=== PATIENT | male | born 1940 | race Caucasian/White ===

== ENCOUNTER 2016-06-12 16:03 | Inpatient (IN) | payer OTHER, BC ==
--- NOTE | 2016-06-12 17:06 | EDPHY ---
H & P Time Seen by Provider: 06/12/16 16:35 HPI/ROS: Chief complaint. Slurred speech HPI. Patient is a 76-year-old male with apparent severe lumbar stenosis was in the neurosurgical office today trying to schedule surgery and they found him to have slurred speech and a blood pressure in the 70s. 4 days ago he developed right leg weakness he was prescribed [place]. They called him and told him he needed more immediate surgery. Patient tells me said slurred speech for 2 days and some right arm weakness. He can' t lift a bottle of milk which he normally can. His leg is somewhat weak 2. He lives by himself in [place]. His daughter drove him. He has no chest discomfort or trouble breathing. ROS Constitutional. no fever/chills, no weakness Eyes. no problems with vision ENT. no sore throat, no nasal drainage Cardiovascular. no chest pain Respiratory. no shortness of breath, no cough Abdominal. no abdominal pain, no nausea/vomiting, no diarrhea . no problems urinating MS. no calf pain/swelling, no neck/back pain, no joint pain Skin. no rash Lymph. no swollen glands Neuro. Slurred speech and right-sided weakness causing difficulty walking and with speech Past Medical/Surgical History: Past medical history seen for Parkinson's disease, cervical fusion, lumbar fusion, lumbar stenosis Social History: , nonsmoker, no alcohol Smoking Status: Former smoker Physical Exam: General Appearance: Alert well-developed male mild distress vital signs show an initial blood pressure 109/58 with O2 saturation 91% on room air Eyes: Pupils equal and round no pallor or injection. ENT, Mouth: Mucous membranes are moist. Respiratory: There are no retractions, lungs are clear to auscultation. Cardiovascular: Regular rate and rhythm. Gastrointestinal: Abdomen is soft and nontender, no masses, bowel sounds normal. Neurological: Awake and alert, sensory and motor exams grossly normal. Speech is slurred. Cranial nerves otherwise intact. I cannot demonstrate of facial droop. Patient is ataxic with his right index finger. There is no pronator drift. He also appears to be ataxic with his right leg on [id number] testing Skin: Warm and dry, no rashes. Musculoskeletal: Neck is supple nontender. Extremities symmetrical, full range of motion. Psychiatric: Patient is oriented X 3, there is no agitation. Constitutional: Initial Vital Signs Temperature (C) 36.8 C 06/12/16 16:15 Heart Rate 71 06/12/16 16:15 Respiratory Rate 18 06/12/16 16:15 Blood Pressure 109/58 L 06/12/16 16:15 O2 Sat (%) 91 L 06/12/16 16:15 O2 Delivery Mode Room Air Allergies/Adverse Reactions: No Known Allergies Allergy (Verified 12/21/15 11:42) Home Medications: Medication Instructions Recorded Amiodarone HCl [Pacerone (*)] 200 mg PO DAILY 09/17/14 Cholecalciferol Vit D3 [Vitamin D3 1,000 units PO DAILY 09/17/14 (*)] Tamsulosin HCl [Flomax 0.4 MG (*)] 0.4 mg PO DAILY #30 cap 10/14/14 Aspirin [Aspirin 81mg (*)] 81 mg PO DAILY 12/20/15 Atorvastatin Calcium [Lipitor 40 80 mg PO DAILY 12/20/15 mg (*)] Carbidopa/Levodopa 25/100Mg 1 - 2 tab PO HS 12/20/15 [Sinemet 25/100 MG (*)] Carbidopa/Levodopa 25/100Mg 1 tab PO TIDMEAL 12/20/15 [Sinemet 25/100 MG (*)] traMADol [Ultram 50 mg (*)] 100 mg PO Q6 PRN 12/20/15 Colace 06/12/16 GABAPENTIN 06/12/16 HCTZ (*) 06/12/16 IBUPROFEN 06/12/16 Medical Decision Making - Diagnostics EKG Interpretation: EKG interpreted by me shows normal sinus rhythm with normal interval. Left axis deviation. QRS is otherwise normal no significant ST elevation or depression. No arrhythmia. The rate is 60 Imaging: Noncontrast head CT reviewed by me and discussed with Dr. Dubois appears nonacute. No evidence of CVA or hemorrhage Procedures: IV normal saline, monitor ED Course/Re-evaluation: I consulted and discussed the case with Dr. Villalpando, neurosurgery, who requests the patient be admitted to the hospitalist I consulted and discussed case with Dr. Carson, hospitalist who agrees to the admission I have discussed imaging lab EKG findings with the patient and have recommended admission. The patient expresses understanding and agreement Differential Diagnosis: Slurred speech may be result of him taking too many hydrocodone tablets. I was concerned that the patient had CVA but there is no evidence of this. He apparently has significant lumbar stenosis requiring urgent and emergent surgery. - Data Points Laboratory Results: Laboratory Results 06/12/16 16:20 06/12/16 16:20 06/12/16 06/12/16 06/12/16 16:20 16:20 16:20 WBC RBC Hgb Hct MCV MCH MCHC RDW Plt Count MPV Neut % (Auto) Lymph % (Auto) Navarro % (Auto) Eos % (Auto) Baso % (Auto) Nucleat RBC Rel Count Absolute Neuts (auto) Absolute Lymphs (auto) Absolute Monos (auto) Absolute Eos (auto) Absolute Basos (auto) Absolute Nucleated RBC Immature Gran % Immature Gran # PT 13.4 SEC SEC (12.0-15.0) INR 1.03 (0.83-1.16) APTT 32.6 SEC SEC (23.0-38.0) D-Dimer 1.90 ug/mLFEU H ug/mLFEU (0.00-0.50) Sodium 140 mEq/L mEq/L (134-144) Potassium 3.4 mEq/L L mEq/L (3.5-5.2) Chloride 103 mEq/L mEq/L (97-110) Carbon Dioxide 23 mEq/l mEq/l (22-31) Anion Gap 14 mEq/L mEq/L (8-16) BUN 33 mg/dL H mg/dL (7-23) Creatinine 1.6 mg/dL H mg/dL (0.7-1.3) Estimated GFR 42 Glucose 90 mg/dL mg/dL (70-100) Calcium 9.5 mg/dL mg/dL (8.5-10.4) Troponin I < 0.012 ng/mL ng/mL (0-0.034) Ethyl Alcohol < 10 mg/dL mg/dL (0-10) 06/12/16 16:20 WBC 9.29 10^3/uL 10^3/uL (3.80-9.50) RBC 4.13 10^6/uL L 10^6/uL (4.40-6.38) Hgb 12.0 g/dL L g/dL (13.7-17.5) Hct 37.3 % L % (40.0-51.0) MCV 90.3 fL fL (81.5-99.8) MCH 29.1 pg pg (27.9-34.1) MCHC 32.2 g/dL L g/dL (32.4-36.7) RDW 18.1 % H % (11.5-15.2) Plt Count 298 10^3/uL 10^3/uL (150-400) MPV 9.6 fL fL (8.7-11.7) Neut % (Auto) 59.8 % % (39.3-74.2) Lymph % (Auto) 29.7 % % (15.0-45.0) Navarro % (Auto) 8.1 % % (4.5-13.0) Eos % (Auto) 1.9 % % (0.6-7.6) Baso % (Auto) 0.3 % % (0.3-1.7) Nucleat RBC Rel Count 0.0 % % (0.0-0.2) Absolute Neuts (auto) 5.55 10^3/uL 10^3/uL (1.70-6.50) Absolute Lymphs (auto) 2.76 10^3/uL 10^3/uL (1.00-3.00) Absolute Monos (auto) 0.75 10^3/uL 10^3/uL (0.30-0.80) Absolute Eos (auto) 0.18 10^3/uL 10^3/uL (0.03-0.40) Absolute Basos (auto) 0.03 10^3/uL 10^3/uL (0.02-0.10) Absolute Nucleated RBC 0.00 10^3/uL 10^3/uL (0-0.01) Immature Gran % 0.2 % % (0.0-1.1) Immature Gran # 0.02 10^3/uL 10^3/uL (0.00-0.10) PT INR APTT D-Dimer Sodium Potassium Chloride Carbon Dioxide Anion Gap BUN Creatinine Estimated GFR Glucose Calcium Troponin I Ethyl Alcohol Medications Given: Discontinued Medications Sodium Chloride (Ns) 1,000 mls @ 0 mls/hr IV ONCE ONE PRN Reason: Wide Open Stop: 06/12/16 17:13 Last Admin: 06/12/16 17:13 Dose: 1,000 mls Departure - Departure Disposition: [facility] Inpatient Acute Clinical Impression: Lumbar stenosis Condition: Fair Referrals: GONZÁLEZ GARCIA [Other] - As per Instructions
--- NOTE | 2016-06-12 17:09 | CPEKG ---
Heart Rate: 61 RR Interval: 984 QRSD Interval: 106 QT Interval: 476 QTC Interval: 480 QRS Coffeen: 26 T Wave Coffeen: 53 EKG Severity - ABNORMAL ECG - EKG Impression: ACCELERATED JUNCTIONAL ESCAPE RHYTHM EKG Impression: BORDERLINE PROLONGED QT INTERVAL Electronically Signed By: Nahid Suggs 12-Jun-2016 21:44:06
[2016-06-12] MEDS ORDERED: NS 1,000 ML IV ONE (17:12)
[2016-06-12 17:15] LABS: % IMMATURE GRANULYOCYTES 0.2 % (0.0-1.1); ABSOLUTE IMMATURE GRANULOCYTES 0.02 10^3/uL (0.00-0.10); ADD DIFF? NO; ADD MORPH? NO; ADD SCAN? NO; ATYPICAL LYMPHOCYTE FLAG 0 (0-99); FRAGMENT RBC FLAG 0 (0-99); HEMATOCRIT 37.3 % (40.0-51.0); LEFT SHIFT FLG 0 (0-99); LIPEMIA HEMOLYSIS FLAG 80 (0-99); MEAN CELL HEMOGLOBIN 29.1 pg (27.9-34.1); MEAN CELL HEMOGLOBIN CONCENTR. 32.2 g/dL (32.4-36.7); MEAN CELL VOLUME 90.3 fL (81.5-99.8); MEAN PLATELET VOLUME 9.6 fL (8.7-11.7); PLATELET CLUMPS FLAG 0 (0-99); PLATELET COUNT 298 10^3/uL (150-400); RED BLOOD CELL COUNT 4.13 10^6/uL (4.40-6.38); RED CELL DISTRIBUTION WIDTH 18.1 % (11.5-15.2)
[2016-06-12 17:26] LABS: INR 1.03 (0.83-1.16); PROTIME(PATIENT) 13.4 SEC (12.0-15.0)
[2016-06-12 17:27] LABS: APTT 32.6 SEC (23.0-38.0)
[2016-06-12 17:40] LABS: ANION GAP 14 mEq/L (8-16); CALCIUM 9.5 mg/dL (8.5-10.4); CARBON DIOXIDE 23 mEq/l (22-31); CHLORIDE 103 mEq/L (97-110); CREATININE 1.6 mg/dL (0.7-1.3); GLOMERULAR FILTRATION RATE 42; GLUCOSE 90 mg/dL (70-100); POTASSIUM 3.4 mEq/L (3.5-5.2); SODIUM 140 mEq/L (134-144)
[2016-06-12 17:53] LABS: TROPONIN I < 0.012 ng/mL (0-0.034)
[2016-06-12 18:30] LABS: ETHANOL SERUM < 10 mg/dL (0-10)
[2016-06-12 19:08] LABS: COLOR YELLOW; LEUKOCYTE ESTERASE,URINE NEGATIVE (NEGATIVE); NITRITE,URINE NEGATIVE (NEGATIVE)
[2016-06-12] MEDS ORDERED: ONDANSETRON DISINTEGRATING 4 MG TAB PO PRN (21:38)
[2016-06-12] MEDS ORDERED: ONDANSETRON 4 MG/2 ML VIAL IVP PRN (21:38)
[2016-06-12] MEDS ORDERED: ASPIRIN 325 MG TAB PO ONE (21:38)
[2016-06-12] MEDS ORDERED: NS W/ 20 KCl/L 1,000 ML IV SCH (22:00)
--- NOTE | 2016-06-12 22:47 | GHP ---
[f rep st] HISTORY AND PHYSICAL DATE OF ADMISSION: 06/12/2016 CHIEF COMPLAINT: Lower extremity weakness in the setting of severe lumbar stenosis and a new symptom of slurred speech detected at his neurosurgeon's office. HISTORY OF PRESENT ILLNESS: The patient is a 76-year-old male with a history of severe lumbar stenosis with radiculopathy, followed by Dr. Amari Villalpando, who was sent to the ED from his neurosurgeon's office today due to new symptoms of slurred speech and hypotension. They have plans to proceed with surgery and based on a recent MRI done in the outpatient setting, it was recommended this be done on an urgent to emergent basis. He was noted to have dysarthric symptoms in clinic with a systolic blood pressure 75 and was sent to the ED for admission. Upon arrival to the ER, he was normotensive, however, his slurred speech persisted. He had no facial droop. He has recently been taking 2 [place] every 4 hours for his back pain. His last [place] dose was yesterday. It was thought this may be contributing to his speech abnormalities. He also reports some right arm weakness, which is new. He has had progressively worsening bilateral lower extremity pain and weakness related to his severe stenosis. He denies paresthesias. He reports he is quite weak and has difficulty walking without assistance. He denies fevers or chills. He denies chest pain, shortness of breath, or any pleuritic symptoms. A D-dimer was checked in the ED, which is elevated. Due to his creatinine of 1.6, a CT pulmonary angiogram was deferred. He is admitted to the hospital for neurosurgical intervention, as well as further evaluation of his dysarthria. PAST MEDICAL/SURGICAL HISTORY: 1. Severe lumbar spinal stenosis with worsening radiculopathy. 2. AAA repair. 3. Femoral aneurysm repair. 4. Right-sided carotid endarterectomy. 5. Possible cardiac arrhythmia previously on amiodarone. 6. Hyperlipidemia. 7. 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 8. Knee surgery. 9. Shoulder surgery. MEDICATIONS: Please see [facility] for complete updated outpatient medication list. ALLERGIES: None. FAMILY HISTORY: His father of coronary artery disease. SOCIAL HISTORY: Patient denies alcohol or tobacco use. He lives in [place]. He is . His of liver failure. REVIEW OF SYSTEMS: A 10-point review of systems is performed and is negative except as per HPI. OBJECTIVE: VITAL SIGNS: Temperature is 36.8, blood pressure is 135/70, heart rate 65, respiratory rate 16, 95% on room air. GENERAL: The patient is awake, alert, and oriented in no acute distress. HEENT: Head is atraumatic, normocephalic. Pupils equal, round, react to light. Extraocular muscles are intact. Oropharynx is clear. There is no facial droop. NECK: Supple. There is no JVD. HEART: Has a regular rate and rhythm without murmur. LUNGS: Clear to auscultation bilaterally. ABDOMEN: Soft, nondistended, nontender. Normoactive bowel sounds. EXTREMITIES: He has significant pain with flexion of his lower extremities bilaterally. Extremities are without cyanosis, clubbing, or edema, are warm and well perfused. Sensation is intact. NEUROLOGIC: He has 2+ deep tendon reflexes at his patellar tendons bilaterally. No clonus is noted. He has bilateral proximal lower extremity weakness. Pronator drift is negative. There is no facial asymmetry. His speech is dysarthric. LABORATORY DATA: CBC reveals a normal white count, hemoglobin 12. INR is 1. D -dimer is 1.9. Basic metabolic panel is remarkable for a potassium of 3.4, BUN 33, creatinine 1.6, which is increased from his prior creatinine of 1.1 in October 2014. Urinalysis was negative. Ethyl alcohol is less than 10. Troponin is negative. CT head is negative for acute stroke or hemorrhage. Diffuse cerebral atrophy is noted. There are also some findings consistent with sequelae of prior mastoiditis. Chest x-ray is personally reviewed and interpreted. There is poor inspiration. There is a questionable opacity in the left lower lobe. EKG reveals normal sinus rhythm with a heart rate of 61. There is no evidence of acute ischemic changes. ASSESSMENT AND PLAN: This is a 76-year-old male with a history of severe lumbar stenosis who is admitted to the hospital with progressive lower extremity weakness and need for more urgent neurosurgical intervention. In addition, he has dysarthria. 1. Severe lumbar spinal stenosis with marked radicular symptoms. He underwent MRI recently by Dr. Amari Villalpando, and it is recommended he undergo urgent surgery. Given his difficulties tolerating [place], will treat his pain with Tylenol and try tramadol. Defer NSAIDs given his MICHAEL. He will be made n.p.o. after midnight while we await neurosurgical consultation. 2. Dysarthria and RUE weakness. CT is negative. Given his history of carotid endarterectomy, hyperlipidemia, hypertension and prior vascular disease, will check a brain MRI. If negative, it's plausible that he is having side effects from opioids vs gabapentin. His last [place] dose was >24 hrs ago. Will continue to hold these meds. Continue aspirin and statin. Per chart review, there was some history of cardiac arrhythmia, and he was previously on amiodarone so I query a history of atrial fibrillation. Place on telemetry. 3. Acute kidney injury. His creatinine has ranged from 1.1-2.7 over the past year and a half. Will check a urine sodium and urine creatinine to calculate a FENa for further evaluation. Gentle IV fluids overnight and recheck this in the morning. 4. Elevated D-dimer. The patient has no chest pain, shortness of breath, pleuritic symptoms, hypoxemia or tachycardia. I will go ahead and check a lower extremity Doppler to rule out DVT. Should he develop more obvious symptoms of PE, we could pursue a CT pulmonary angiogram in the morning if his creatinine is improved. At this time, I do not think he warrants anticoagulation unless he rules in for DVT. 5. Hypokalemia. This is mild. I will give him some potassium in his IV fluids. Recheck in the morning. 6. Possible left basilar infiltrate on chest x-ray. The patient has no fever, cough, or hypoxemia. I am going to check a PA lateral chest x-ray in the am for better evaluation of this, but at this time he does not clinically appear to have pneumonia. 7. Deep venous thrombosis prophylaxis. Patient is a candidate for Lovenox though I will defer this tonight, as he is pending neurosurgical evaluation. If he does not go to the OR tomorrow, Lovenox would be in order. 8. Code status. Patient is full code. 9. Disposition. Patient is admitted to inpatient status. Will likely require greater than 48 hours hospitalization for ongoing management of his severe lumbar spinal stenosis and further evaluation of his dysarthria. /[id number]/MODL MTDD
[2016-06-12] MEDS: traMADol 50 MG TAB PO PRN (23:35)
[2016-06-12] MEDS: CARBIDOPA/LEVODOPA 25 MG/100 MG TAB PO SCH (23:36)
[2016-06-13 05:29] LABS: ANION GAP 7 mEq/L (8-16); CALCIUM 8.3 mg/dL (8.5-10.4); CARBON DIOXIDE 24 mEq/l (22-31); CHLORIDE 110 mEq/L (97-110); CREATININE 1.3 mg/dL (0.7-1.3); GLOMERULAR FILTRATION RATE 53; GLUCOSE 86 mg/dL (70-100); POTASSIUM 3.5 mEq/L (3.5-5.2); SODIUM 141 mEq/L (134-144)
[2016-06-13] MEDS: CARBIDOPA/LEVODOPA 25 MG/100 MG TAB PO SCH ×5 (05:36→20:59)
--- NOTE | 2016-06-13 06:44 | NEUSURGPN ---
Assessment/Plan: Assessment: 76 yo male that was admitted to with hypotension and pain control. 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 Pt with continued back and leg pain. Pt with RLE pain more than left. No bustillos/neck/chest/abd or gu complaints this am Objective: AAO x 3, PERRLA/EOMI no droop CN 2-12 grossly intact +lt touch 5/5 BUE/BLE = incision-no issues-well healed Neuro Check Frequency: per routine Urinary Catheter in Place: No - Physician Discussed Patient with : Kwasi Patient Seen by : Kwasi Neurosurgery Physical Exam - Vitals, I&O, Labs I and O 06/12/16 06/13/16 06/14/16 05:59 05:59 05:59 Intake Total 1000 Output Total 400 Balance 600 Weight 77.11 kg Intake: IV Infused (ml) 1000 Output: Urine (ml) 400 Urinal 400 Other: Intake Quantity Yes Sufficient Number of Voids Urinal 2 Vital Signs Temp Pulse Resp BP Pulse Ox 36.8 C 69 16 115/56 L 97 06/13/16 04:00 06/13/16 04:00 06/13/16 04:00 06/13/16 05:40 06/13/16 04:00 Laboratory Results 06/13/16 04:20 ICD10 Worksheet Patient Problems: Problems Problem Status Onset Lumbar stenosis Acute Low back pain Acute Lumbosacral stenosis Acute
[2016-06-13] MEDS: TAMSULOSIN HCL 0.4 MG CAP PO SCH (08:08)
[2016-06-13] MEDS: HYDROCHLOROTHIAZIDE 25 MG TAB PO SCH (08:10)
[2016-06-13] MEDS ORDERED: ASPIRIN 81 MG CHEWABLE TAB PO SCH (09:00)
--- NOTE | 2016-06-13 16:25 | HOSPPROG ---
Hospitalist Progress Note Assessment/Plan: * slurred speech * seems to be improving * MRI brain negative for CVA * possibly related to medications * severe lumbar radiculopathy * will get surgery soon * history of peripheral vascular disease and AAA * holding aspirin for surgery * Parkinson's * BPH Subjective: slurred speech seems to be improving. Continued back pain Objective: Vital Signs Temp Pulse Resp BP Pulse Ox 37 C 69 14 104/66 92 06/13/16 16:00 06/13/16 16:00 06/13/16 16:00 06/13/16 16:00 06/13/16 16:00 Laboratory Results 06/13/16 04:20 06/12/16 06/13/16 06/14/16 05:59 05:59 05:59 Intake Total 1000 400 Output Total 400 400 Balance 600 0 PT 13.4 SEC (12.0-15.0) 06/12/16 16:20 INR 1.03 (0.83-1.16) 06/12/16 16:20 - Physical Exam Constitutional: no apparent distress, appears nourished, not in pain Eyes: anicteric sclera, EOMI Ears, Nose, Mouth, Throat: moist mucous membranes, hearing normal, ears appear normal Cardiovascular: regular rate and rhythym, no murmur, rub, or gallop Respiratory: no respiratory distress, no rales or rhonchi, clear to auscultation Gastrointestinal: normoactive bowel sounds, soft, non-tender abdomen, no palpable masses Skin: warm Neurologic: AAOx3, CN II-XII Intact, other ( slight right leg weakness) Psychiatric: interacting appropriately, not anxious, not encephalopathic, thought process linear ICD10 Worksheet Patient Problems: Problems Problem Status Onset Lumbar stenosis Acute Low back pain Acute Lumbosacral stenosis Acute
[2016-06-13] MEDS: ATORVASTATIN CALCIUM 40 MG TAB PO SCH (17:37)
[2016-06-14] MEDS: traMADol 50 MG TAB PO PRN ×3 (05:08→20:11)
[2016-06-14] MEDS: CARBIDOPA/LEVODOPA 25 MG/100 MG TAB PO SCH ×4 (05:39→20:10)
--- NOTE | 2016-06-14 07:39 | NEUSURGPN ---
Assessment/Plan: Assessment: 76 yo male that was admitted to with hypotension and pain control. 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 NAD. Eating/drinking and voiding. No f/c/n/v/d. No bustillos/neck/ chest/abd or gu complaints. Objective: AAO x 3, PERRLA/EOMI no droop CN 2-12 grossly intact +lt touch 5/5 BUE/BLE = incision-no issues-well healed Neuro Check Frequency: per routined Urinary Catheter in Place: No - Physician Discussed Patient with : Kwasi Patient Seen by : Kwasi Neurosurgery Physical Exam - Vitals, I&O, Labs I and O 06/13/16 06/14/16 06/15/16 05:59 05:59 05:59 Intake Total 1000 900 Output Total 400 800 Balance 600 100 Weight 77.11 kg Intake: Oral (ml) 900 IV Infused (ml) 1000 Output: Urine (ml) 400 800 Urinal 400 800 Other: Intake Quantity Yes Sufficient Number of Voids Urinal 2 1 Vital Signs Temp Pulse Resp BP Pulse Ox 36.4 C 73 14 115/57 L 94 06/14/16 07:17 06/14/16 07:17 06/14/16 07:17 06/14/16 07:17 06/14/16 07:17 Laboratory Results 06/13/16 04:20 ICD10 Worksheet Patient Problems: Problems Problem Status Onset Lumbar stenosis Acute Low back pain Acute Lumbosacral stenosis Acute
[2016-06-14] MEDS: HYDROCHLOROTHIAZIDE 25 MG TAB PO SCH (09:44)
[2016-06-14] MEDS: TAMSULOSIN HCL 0.4 MG CAP PO SCH (09:44)
[2016-06-14] MEDS: ACETAMINOPHEN 325 MG TAB PO PRN ×2 (09:47→17:57)
[2016-06-14] MEDS ORDERED: ENOXAPARIN 40 MG/0.4 ML SYR SC SCH (13:30)
--- NOTE | 2016-06-14 15:42 | HOSPPROG ---
Hospitalist Progress Note Assessment/Plan: * slurred speech * seems to be improving * MRI brain negative for CVA * possibly related to medications * severe lumbar radiculopathy * will get surgery soon * add muscle relaxers * preop * did have fair exercise tolerance prior to symptoms of radiculopathy. No previous history of coronary disease although does have history of vascular disease. EKG is nonischemic with no Q-waves. surgery is moderate risk and appears fairly urgent. * He does have a murmur and thus will get echocardiogram but can proceed to surgery on Sunday * history of peripheral vascular disease and AAA * holding aspirin for surgery * Parkinson's * BPH Subjective: complaining of cramps both legs Objective: Vital Signs Temp Pulse Resp BP Pulse Ox 36.6 C 67 18 104/58 L 94 06/14/16 12:00 06/14/16 12:00 06/14/16 12:00 06/14/16 12:00 06/14/16 12:00 Laboratory Results 06/13/16 04:20 06/13/16 06/14/16 06/15/16 05:59 05:59 05:59 Intake Total 1000 900 300 Output Total 400 800 Balance 600 100 300 PT 13.4 SEC (12.0-15.0) 06/12/16 16:20 INR 1.03 (0.83-1.16) 06/12/16 16:20 - Physical Exam Constitutional: no apparent distress, appears nourished, not in pain Eyes: anicteric sclera, EOMI Ears, Nose, Mouth, Throat: moist mucous membranes, hearing normal, ears appear normal Cardiovascular: regular rate and rhythym, no murmur, rub, or gallop Respiratory: no respiratory distress, no rales or rhonchi, clear to auscultation Gastrointestinal: normoactive bowel sounds, soft, non-tender abdomen, no palpable masses Skin: warm Neurologic: AAOx3 Psychiatric: interacting appropriately, not anxious, not encephalopathic, thought process linear ICD10 Worksheet Patient Problems: Problems Problem Status Onset Lumbar stenosis Acute Low back pain Acute Lumbosacral stenosis Acute
[2016-06-14] MEDS: METHOCARBAMOL 750 MG TAB PO PRN (15:57)
[2016-06-14] MEDS: ATORVASTATIN CALCIUM 40 MG TAB PO SCH (15:57)
[2016-06-15] MEDS: METHOCARBAMOL 750 MG TAB PO PRN ×2 (03:57→12:44)
[2016-06-15] MEDS: traMADol 50 MG TAB PO PRN ×2 (03:57→12:44)
[2016-06-15] MEDS: CARBIDOPA/LEVODOPA 25 MG/100 MG TAB PO SCH ×4 (05:27→19:51)
[2016-06-15] MEDS: ACETAMINOPHEN 325 MG TAB PO PRN (06:14)
--- NOTE | 2016-06-15 06:56 | NEUSURGPN ---
Assessment/Plan: Assessment: 76 yo male that was admitted to with hypotension and pain control. 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 NAD. Eating/drinking and voiding. No f/c/n/v/d. Objective: AAO x 3, PERRLA/EOMI no droop CN 2-12 grossly intact +lt touch 5/5 BUE/BLE = incision-no issues-well healed Neuro Check Frequency: per routine Urinary Catheter in Place: No - Physician Discussed Patient with : Kwasi Patient Seen by : Kwasi Neurosurgery Physical Exam - Vitals, I&O, Labs I and O 06/14/16 06/15/16 06/16/16 05:59 05:59 05:59 Intake Total 900 1250 Output Total 800 850 Balance 100 400 Intake: Oral (ml) 900 1250 Output: Urine (ml) 800 850 Toilet 150 Urinal 800 700 Other: Number of Voids Toilet 1 Urinal 1 1 Vital Signs Temp Pulse Resp BP Pulse Ox 36.4 C 63 18 141/74 H 95 06/15/16 03:53 06/15/16 03:53 06/15/16 03:53 06/15/16 03:53 06/15/16 03:53 Laboratory Results 06/13/16 04:20 ICD10 Worksheet Patient Problems: Problems Problem Status Onset Lumbar stenosis Acute Low back pain Acute Lumbosacral stenosis Acute
[2016-06-15] MEDS: DIAZEPAM 10 MG/2 ML SYR IVP PRN ×3 (07:13→19:51)
[2016-06-15] MEDS: TAMSULOSIN HCL 0.4 MG CAP PO SCH (09:28)
--- NOTE | 2016-06-15 09:54 | ECHO ---
[id number] + + [address] : : [place] [address] : : [phone] + + Adult Echocardiographic Report + --+ :Name: EVELIO MAYER DStudy Date: 06/14/2016 02:05 PM : : Hospital Admission Number: [id number] : :: 1940 Gender: Male Height: 71 in : :Age: 76 yrs Race: WH Weight: 169 lb : :Reason For Study: pre-op surgery : : BSA: 2.0 meter s2: :History: murmur : + --+ MMode/2D Measurements \T\ Calculations IVSd: 1.3 cm RVDd: 3.1 cm FS: 33.6 % Ao root diam: LVPWd: 1.0 cm LVIDd: 4.6 cm EDV(Teich): 97.8 ml 2.9 cm LVIDs: 3.1 cm ESV(Teich): 36.7 ml LA dimension: EF(Teich): 62.5 % 2.5 cm LVOT diam: LVLd ap4: 9.1 cm SV(MOD-sp4): 2.0 cm EDV(MOD-sp4): 114.0 ml LVOT area: 162.0 ml 3.1 cm2 LVLs ap4: 7.0 cm ESV(MOD-sp4): 48.0 ml EF(MOD-sp4): 70.4 % Normal Measurement Values: + + :LVIDd (3.5-5.7cm) IVSd (0.6-1.1cm) LVPWd (0.6-1.1cm) Aortic Root (2.0-3.7cm)Left Atrium (1.5-4.0cm): :LV Vol(d) (76-115ml) LV Vol(s) (29-48ml) Ejec Fraction (50-65%)PV Aniket (0.6- 1.2m/s) TV Aniket (0.4-1.0m/s) : :MV E Aniket (0.8-1.0m/s)MV A Aniket (0.3-1.0m/s)LVOT Aniket (0.7-1.2m/s) Asc Ao Aniket ( 0.9-1.8m/s) : + + Doppler Measurements \T\ Calculations MV E max aniket: AI max aniket: LV V1 max: PA V2 max: 99.2 cm/sec 150.3 cm/sec 83.9 cm/sec 96.4 cm/sec MV A max aniket: AI max P.0 mmHg LV V1 max PG: PA max P.3 cm/sec 2.8 mmHg 3.7 mmHg MV E/A: 1.1 MV dec time: 0.28 sec Left Ventricle The left ventricle is normal in size and function. There is mild concentric left ventricular hypertrophy. Ejection Fraction = 65-70%. Moderate diastolic dysfunction with elevated LV filling pressures. No regional wall motion abnormalities noted. Right Ventricle The right ventricle is normal in size and function. Atria The left atrial size is normal. Right atrial size is normal. Mitral Valve The mitral valve is normal in structure and function. There is no mitral valve stenosis. There is mild mitral regurgitation. Tricuspid Valve The tricuspid valve is normal in structure and function. There is no tricuspid stenosis. There is trace tricuspid regurgitation. Unable to assess PA systolic pressure. Aortic Valve The aortic valve is trileaflet. There is no aortic stenosis. There is no aortic insufficiency. Pulmonic Valve The pulmonic valve is not well visualized. There is no pulmonic valvular regurgitation. Great Vessels The aortic root is normal size. Pericardium/Pleural There is no pericardial effusion. Conclusion A two-dimensional transthoracic echocardiogram with M-mode and Doppler was performed. The left ventricle is normal in size and function. There is mild concentric left ventricular hypertrophy. Ejection Fraction = 65-70%. Moderate diastolic dysfunction with elevated LV filling pressures There is mild mitral regurgitation. There is trace tricuspid regurgitation. No prior echo Final Reading Physician: Dr Natalie Leonard electronically signed on 06/15/2016 09:52 AM Ordering Physician: Yovany Balderas Performed By: Madhavi Radford
--- NOTE | 2016-06-15 15:52 | HOSPPROG ---
Hospitalist Progress Note Assessment/Plan: * slurred speech * seems to be improving * MRI brain negative for CVA * possibly related to medications/ Parkinson's * severe lumbar radiculopathy * will get surgery soon * add muscle relaxers * preop * did have fair exercise tolerance prior to symptoms of radiculopathy. No previous history of coronary disease although does have history of vascular disease. EKG is nonischemic with no Q-waves. surgery is moderate risk and appears fairly urgent. * echocardiogram does show some diastolic dysfunction but no wall motion abnormalities and no valvular heart disease * he can proceed to surgery tomorrow * history of peripheral vascular disease and AAA * holding aspirin for surgery * hypertension * holding hydrochlorothiazide for surgery tomorrow. Probably would restart postoperatively since he has diastolic dysfunction * Parkinson's * BPH Subjective: muscle spasms are better with muscle relaxer Objective: Vital Signs Temp Pulse Resp BP Pulse Ox 36.4 C 70 16 140/79 H 97 06/15/16 15:27 06/15/16 15:27 06/15/16 15:27 06/15/16 15:27 06/15/16 15:27 Laboratory Results 06/13/16 04:20 06/14/16 06/15/16 06/16/16 05:59 05:59 05:59 Intake Total 900 1250 Output Total 800 850 Balance 100 400 PT 13.4 SEC (12.0-15.0) 06/12/16 16:20 INR 1.03 (0.83-1.16) 06/12/16 16:20 echocardiogram reviewed - Physical Exam Constitutional: no apparent distress, appears nourished, not in pain Eyes: anicteric sclera, EOMI Ears, Nose, Mouth, Throat: moist mucous membranes, hearing normal Cardiovascular: regular rate and rhythym, systolic murmur Respiratory: no respiratory distress Skin: warm Neurologic: AAOx3 Psychiatric: interacting appropriately, not anxious, not encephalopathic, thought process linear ICD10 Worksheet Patient Problems: Problems Problem Status Onset Lumbar stenosis Acute Low back pain Acute Lumbosacral stenosis Acute
[2016-06-15] MEDS: ATORVASTATIN CALCIUM 40 MG TAB PO SCH (17:11)
[2016-06-16] MEDS: DIAZEPAM 10 MG/2 ML SYR IVP PRN (03:05)
[2016-06-16] MEDS: CARBIDOPA/LEVODOPA 25 MG/100 MG TAB PO SCH ×4 (05:12→20:08)
[2016-06-16] MEDS: METHOCARBAMOL 750 MG TAB PO PRN (05:12)
[2016-06-16] MEDS: traMADol 50 MG TAB PO PRN (05:15)
[2016-06-16] MEDS ORDERED: NALOXONE HCL 0.4 MG/ML INJ IVP PRN (07:07)
[2016-06-16] MEDS ORDERED: diphenhydrAMINE 25 MG CAP PO PRN (07:07)
[2016-06-16] MEDS ORDERED: MAGNESIUM HYDROXIDE 30 ML UDCUP PO PRN (07:07)
[2016-06-16] MEDS ORDERED: HYDROmorphONE/DILAUDID 6 MG/30 ML PCA IV PRN (07:07)
[2016-06-16] MEDS ORDERED: LACTULOSE 20 GM/30 ML UDCUP PO PRN (07:07)
[2016-06-16] MEDS ORDERED: BISACODYL 10 MG SUPP PR PRN (07:07)
--- NOTE | 2016-06-16 07:07 | NEUSURGPN ---
Date of Surgery: 06/16/16 Post Op Day: 0 Assessment/Plan: Assessment: 76 yo male that was admitted to with hypotension and pain control. 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 NAD. Eating/drinking and voiding. NPO since midnight. Pt with continued BLE pain Objective: AAO x 3, PERRLA/EOMI no droop CN 2-12 grossly intact +lt touch 5/5 BUE/BLE = CDI Neuro Check Frequency: per routine Urinary Catheter in Place: No - Physician Discussed Patient with Dr.: Kwasi Patient Seen by : Kwasi Neurosurgery Physical Exam - Vitals, I&O, Labs I and O 06/15/16 06/16/16 06/17/16 05:59 05:59 05:59 Intake Total 1250 420 Output Total 850 Balance 400 420 Intake: Oral (ml) 1250 420 Output: Urine (ml) 850 Toilet 150 Urinal 700 Other: Intake Quantity Yes Sufficient Number of Voids Toilet 1 1 Urinal 1 Vital Signs Temp Pulse Resp BP Pulse Ox 36.5 C 58 L 15 150/80 H 93 06/16/16 02:59 06/16/16 02:59 06/16/16 02:59 06/16/16 02:59 06/16/16 02:59 Laboratory Results 06/13/16 04:20 ICD10 Worksheet Patient Problems: Problems Problem Status Onset Lumbar stenosis Acute Low back pain Acute Lumbosacral stenosis Acute
[2016-06-16] MEDS ORDERED: NS W/ 20 KCl/L 1,000 ML IV SCH (07:15)
[2016-06-16] MEDS ORDERED: PROPOFOL/EMULSION 500 MG/50 ML BOTTLE IV ONE ×2 (07:48→10:12)
[2016-06-16] MEDS ORDERED: DEXAMETHASONE 4 MG/ML VIAL ONE ×2 (07:50)
[2016-06-16] MEDS ORDERED: PHENYLEPHRINE 10 MG/ML SDV ONE (07:51)
[2016-06-16] MEDS ORDERED: LIDOCAINE 2% 100 MG/5 ML SYR ONE (07:51)
[2016-06-16] MEDS ORDERED: ROCURONIUM 50 MG/5 ML VIAL ONE (07:51)
[2016-06-16] MEDS ORDERED: BUPIVACAINE/EPI 0.5% 30 ML SDV ONE (07:52)
[2016-06-16] MEDS ORDERED: THROMBIN (BOVINE) 5,000 UNIT VIAL TP ONE (07:53)
[2016-06-16] MEDS ORDERED: BACITRACIN 50,000 UNITS/10 ML SYR IRR ONE ×2 (07:53→10:02)
[2016-06-16] MEDS ORDERED: BUPIVACAINE/EPI 0.25% 30 ML SDV ONE (07:54)
[2016-06-16] MEDS ORDERED: ceFAZolin 2 GM/DEXTROSE 100 ML IV ONE (08:00)
[2016-06-16] MEDS ORDERED: MIDAZOLAM 2 MG/2 ML VIAL ONE (08:02)
[2016-06-16] MEDS ORDERED: FAMOTIDINE 20 MG/NACL 50 ML IV SCH (09:00)
[2016-06-16] MEDS ORDERED: fentaNYL 100 MCG/2 ML INJ ONE (11:49)
--- NOTE | 2016-06-16 12:05 | SOAPPROG ---
SOAP Progress Note Assessment/Plan: Post Op Visit: S: Awake and alert. NAD. Pt with expected lower back pain O: AFVSS/PERRLA/EOMI no droop CN 2-12 grossly intact +lt touch 5/5 BUE/BLE= CDI DARON in place A/P 76 yo male that is s/p TLIF L2/3 with tie in fusion to existing hardware -orders in place -call with any questions or concerns -pt seen by Dr Villalpando as well -pt understands and agrees Objective: Vital Signs Temp Pulse Resp BP Pulse Ox 36.5 C 64 16 135/72 H 96 06/16/16 02:59 06/16/16 07:51 06/16/16 07:51 06/16/16 07:51 06/16/16 07:51 Laboratory Results 06/13/16 04:20 06/15/16 06/16/16 06/17/16 05:59 05:59 05:59 Intake Total 1250 420 Output Total 850 Balance 400 420 PT 13.4 SEC (12.0-15.0) 06/12/16 16:20 INR 1.03 (0.83-1.16) 06/12/16 16:20 ICD10 Worksheet Patient Problems: Problems Problem Status Onset Arthrodesis status Acute Lumbar stenosis Acute Low back pain Acute Lumbosacral stenosis Acute - ICD10 Problem Qualifiers (1) Arthrodesis status
--- NOTE | 2016-06-16 13:39 | GOP ---
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 PROCEDURE PERFORMED: Removal of posterior segmental instrumentation at L3 with cutting of the bilateral rods below the L3 tulips, placement of new posterior segmental instrumentation at L2 with juvenal connectors tied into the lower construct (21221), posterolateral and intervertebral arthrodesis with decompression L2-3 (64912, placement of biomechanical intervertebral device at L2-3, same incision bone graft harvest, microscope, spinal stereotaxy, microscope. FINDINGS: ESTIMATED BLOOD LOSS: 150 cc. INDICATIONS: The patient is a 76-year-old who had undergone a previous L3 to S1 fusion without complication, who also has a recent diagnosis of Parkinson disease, who is unable to remain in his house because of severe pain in his legs. He is unable to walk, had excruciating pain as well as severe hypotension when he was seen earlier this week in clinic, and he was slurring his speech. We were concerned for his safety. His family was concerned for his safety. He was admitted to the hospital. MRI of the brain was done demonstrating evidence of acute ischemia. His medications were adjusted by the medicine service, and he was cleared for proceeding with surgery. Because of his terrible pain was adjacent segment disease and severe stenosis at L2-3, we suggested adjacent segment fusion. The risk of screw and hardware malposition, malfunction, nerve injury, spinal fluid leak, continued symptoms, and the risk of adjacent segment disease in the future as well the risk of pseudoarthrosis, was discussed. He wanted to proceed despite these risks. DESCRIPTION OF PROCEDURE: Patient was taken to the operating room, placed in supine position. General anesthesia was begun. He was flipped prone onto the Jian table. Care was taken to pad all points of contact. His back was sterilely prepped and draped in usual fashion. A localizing x-ray was taken. We opened the prior midline incision. Rostrally and extended it rostrally about 4 cm. The subcutaneous tissue was dissected using PlasmaBlade down through the fascia, and a subperiosteal dissection was made down the inferior lamina of L1. The complete lamina of L2, and the rostral lamina of L3, were exposed. The hardware at L3 and L4 was exposed. We removed segmental screws and cap screws at L4 and L3. We then cut the rods bilaterally, and then removed both of the L3 pedicle screws, and placed the Gel-Foam bullet in holes that remained. We then decorticated the posterolateral bone mass that was present at L3-4, and there was indeed significant posterolateral fusion at that level. We then made room for the connector to go onto the rostral juvenal, attached a Stealth reference frame, performed an O-arm spin, and using frameless Stealth stereotaxy, we placed pedicle screws bilaterally at L2. We took 50 mm rods, cut off the end of the rods, and then ran these into the connectors, firmly secured the connectors, reinstalled the cap screws at L4, firmly tightened the connectors at the L3 level, and then captured the tulips at L2, distracted between L2 and L3 and locked the rods in place. We then performed a bilateral laminectomy using the microscope at L2-3, decompressed the central thecal sac and removed the ligamentum flavum. There was right greater than left stenosis. We performed a complete right L2-3 facetectomy, identified the exiting L2 nerve roots, swept the thecal sac medially and under the microscope, removed the L2-3 disk and the cartilaginous endplates completely. We placed bone morphogenic protein and bone autograft into the disk space. The autograft had been harvested from the L2 spinous process. We then inserted under fluoroscopic guidance an expandable cage at that level and expanded it. It was 9 mm cage, and it expanded to 13 mm. A nice fit was obtained. A final x-ray was taken. We relaxed our distraction at L2 to increase the lordosis, locked the juvenal in place. We then irrigated with antibiotic saline solution, decorticated posterolaterally bilaterally to create arthrodesis posterolaterally. We then placed bone morphogenic protein and bone autograft posterolaterally bilaterally and a subfascial drain and closed the incision in multiple layers using Vicryl sutures. A running PDS was placed in the skin itself. Steri-Strips were applied. The patient was reversed from anesthesia, extubated, and transferred to recovery room in stable condition. COMPLICATIONS: None. /[id number]/MODL MTDD
[2016-06-16] MEDS: HYDROmorphONE/DILAUDID 1 MG/ML SYR IVP PRN (14:20)
[2016-06-16] MEDS: HYDROCODONE/APAP 10/325 TAB PO PRN ×3 (14:20→20:08)
[2016-06-16] MEDS: ATORVASTATIN CALCIUM 40 MG TAB PO SCH (15:31)
[2016-06-16] MEDS: FAMOTIDINE 20 MG TAB PO SCH ×2 (15:52→20:16)
[2016-06-16] MEDS: TAMSULOSIN HCL 0.4 MG CAP PO SCH (15:52)
[2016-06-16] MEDS: SENNOSIDES/DOCUSATE SODIUM TAB PO SCH ×2 (15:52→20:09)
[2016-06-16] MEDS: morphINE SR 15 MG TAB PO SCH ×2 (15:52→20:09)
--- NOTE | 2016-06-16 16:20 | HOSPPROG ---
Hospitalist Progress Note Assessment/Plan: * slurred speech * seems to be improving * MRI brain negative for CVA * possibly related to medications/ Parkinson's * severe lumbar radiculopathy * surgery today * continue pain control * preop * did have fair exercise tolerance prior to symptoms of radiculopathy. No previous history of coronary disease although does have history of vascular disease. EKG is nonischemic with no Q-waves. surgery is moderate risk and appears fairly urgent. * echocardiogram does show some diastolic dysfunction but no wall motion abnormalities and no valvular heart disease * he can proceed to surgery tomorrow * history of peripheral vascular disease and AAA * holding aspirin for surgery * hypertension * holding hydrochlorothiazide for surgery tomorrow. Probably would restart postoperatively since he has diastolic dysfunction * Parkinson's * BPH Subjective: status post surgery. Having back pain Objective: Vital Signs Temp Pulse Resp BP Pulse Ox 36.6 C 76 14 125/77 H 96 06/16/16 15:16 06/16/16 15:16 06/16/16 15:16 06/16/16 15:16 06/16/16 15:16 Laboratory Results 06/13/16 04:20 06/15/16 06/16/16 06/17/16 05:59 05:59 05:59 Intake Total 5240 837 7693 Output Total 850 615 Balance 879 301 1149 PT 13.4 SEC (12.0-15.0) 06/12/16 16:20 INR 1.03 (0.83-1.16) 06/12/16 16:20 - Physical Exam Constitutional: no apparent distress, appears nourished, not in pain Eyes: anicteric sclera, EOMI Ears, Nose, Mouth, Throat: moist mucous membranes, hearing normal Cardiovascular: regular rate and rhythym Respiratory: no respiratory distress, no rales or rhonchi, clear to auscultation Gastrointestinal: normoactive bowel sounds Skin: warm Neurologic: AAOx3 Psychiatric: interacting appropriately, not anxious, not encephalopathic, thought process linear ICD10 Worksheet Patient Problems: Problems Problem Status Onset Arthrodesis status Acute Lumbar stenosis Acute Low back pain Acute Lumbosacral stenosis Acute
[2016-06-16] MEDS: DIAZEPAM 5 MG TAB PO PRN (19:11)
[2016-06-16] MEDS: POLYETHYLENE GLYCOL 3350 17 GM PKT PO PRN (20:10)
[2016-06-17 04:28] LABS: % IMMATURE GRANULYOCYTES 0.5 % (0.0-1.1); ABSOLUTE IMMATURE GRANULOCYTES 0.07 10^3/uL (0.00-0.10); ADD DIFF? NO; ADD MORPH? NO; ADD SCAN? NO; ATYPICAL LYMPHOCYTE FLAG 0 (0-99); FRAGMENT RBC FLAG 0 (0-99); HEMATOCRIT 26.8 % (40.0-51.0); LEFT SHIFT FLG 0 (0-99); LIPEMIA HEMOLYSIS FLAG 80 (0-99); MEAN CELL HEMOGLOBIN 29.2 pg (27.9-34.1); MEAN CELL HEMOGLOBIN CONCENTR. 33.6 g/dL (32.4-36.7); MEAN PLATELET VOLUME 9.1 fL (8.7-11.7); PLATELET CLUMPS FLAG 0 (0-99); PLATELET COUNT 201 10^3/uL (150-400); RED BLOOD CELL COUNT 3.08 10^6/uL (4.40-6.38)
[2016-06-17 04:50] LABS: ANION GAP 8 mEq/L (8-16); CALCIUM 8.8 mg/dL (8.5-10.4); CARBON DIOXIDE 20 mEq/l (22-31); CHLORIDE 109 mEq/L (97-110); GLOMERULAR FILTRATION RATE > 60; GLUCOSE 119 mg/dL (70-100); POTASSIUM 4.7 mEq/L (3.5-5.2); SODIUM 137 mEq/L (134-144)
[2016-06-17] MEDS: HYDROCODONE/APAP 10/325 TAB PO PRN (05:27)
[2016-06-17] MEDS: CARBIDOPA/LEVODOPA 25 MG/100 MG TAB PO SCH ×4 (05:28→21:03)
--- NOTE | 2016-06-17 07:51 | NEUSURGPN ---
Assessment/Plan: A/P 76 yo male that is s/p TLIF L2/3 with tie in fusion to existing hardware - POD#1 -Rigid LSO brace when OOB -TEDs, SCDs, lovenox POD#3 -Pain management - continue current meds -Post op xrays pending -DARON drain had 225 out, likely remove later today -Call NS with any issues Subjective: Pt resting in bed, c/o low back pain by incision area Objective: AAOx3 NAD VSS MAEx4 Motor 5/5 BLE Incision cdi +LT JPx1 Urinary Catheter in Place: No Catheter Insertion Date: 06/16/16 - Physician Discussed Patient with : Kwasi Neurosurgery Physical Exam - Vitals, I&O, Labs I and O 06/16/16 06/17/16 06/18/16 05:59 05:59 05:59 Intake Total 420 3230 Output Total 1585 300 Balance 420 1645 -300 Intake: Oral (ml) 420 880 IV Intake (ml) 2350 Output: Urine (ml) 1210 300 Catheter 1210 Toilet 300 Estimated Blood Loss (ml) 150 Wound Drainage (ml) 225 #1 Posterior Back Jian 225 Morel Other: Intake Quantity Yes Sufficient Number of Voids Toilet 1 1 Vital Signs Temp Pulse Resp BP Pulse Ox 36.8 C 65 18 121/62 H 93 06/17/16 04:00 06/17/16 04:00 06/17/16 04:00 06/17/16 04:00 06/17/16 04:00 Laboratory Results 06/17/16 04:25 06/17/16 04:25 ICD10 Worksheet Patient Problems: Problems Problem Status Onset Arthrodesis status Acute Lumbar stenosis Acute Low back pain Acute Lumbosacral stenosis Acute
[2016-06-17] MEDS: POLYETHYLENE GLYCOL 3350 17 GM PKT PO PRN ×2 (08:27→21:08)
[2016-06-17] MEDS: METHOCARBAMOL 750 MG TAB PO PRN ×2 (08:28→17:02)
[2016-06-17] MEDS: FAMOTIDINE 20 MG TAB PO SCH ×2 (08:28→21:02)
[2016-06-17] MEDS: SENNOSIDES/DOCUSATE SODIUM TAB PO SCH ×2 (08:28→21:02)
[2016-06-17] MEDS: TAMSULOSIN HCL 0.4 MG CAP PO SCH (08:28)
[2016-06-17] MEDS: HYDROCHLOROTHIAZIDE 25 MG TAB PO SCH (08:28)
[2016-06-17] MEDS: morphINE SR 15 MG TAB PO SCH ×2 (08:28→21:03)
[2016-06-17] MEDS: oxyCODONE IR 5 MG TAB PO PRN ×3 (08:28→17:02)
[2016-06-17] MEDS: DIAZEPAM 5 MG TAB PO PRN (12:47)
--- NOTE | 2016-06-17 14:52 | HOSPPROG ---
Hospitalist Progress Note Assessment/Plan: 76 yo M with hx of severe lumbar stenosis admitted with slurred speech and now s /p TLIF * slurred speech * seems to be have largely resolved, likely medication related versus related to exacerbation of parkinson's symptoms * severe lumbar radiculopathy * s/p TLIF L2/3 on 06/16; plan for rigid LSO brace when oob, doing well post op , may need to dc to snf, working with pt/ot * anemia: monitoring in post op state, no e/o active bleeding * history of peripheral vascular disease and AAA * holding aspirin for surgery * hypertension * will resume hctz in am * Parkinson's * BPH--no current issues with voiding * dispo: will likely be ready to dc to snf in coming 1-2 days Patient new to my care. Old records reviewed and summarized as above. Care plan reviewed with CM. Subjective: no significant overnight events, patient has been ambulating with pt /ot Objective: Vital Signs Temp Pulse Resp BP Pulse Ox 36.4 C 88 18 112/63 96 06/17/16 11:41 06/17/16 11:41 06/17/16 11:41 06/17/16 11:41 06/17/16 11:41 Laboratory Results 06/17/16 04:25 06/17/16 04:25 06/16/16 06/17/16 06/18/16 05:59 05:59 05:59 Intake Total 420 3230 Output Total 1585 430 Balance 420 1645 -430 PT 13.4 SEC (12.0-15.0) 06/12/16 16:20 INR 1.03 (0.83-1.16) 06/12/16 16:20 awake alert nad anicteric op clear rrr no mrg brace in place cta b soft nt nd no cce warm dry well perfused oriented appropriate ICD10 Worksheet Patient Problems: Problems Problem Status Onset Lumbosacral stenosis Acute Low back pain Acute Lumbar stenosis Acute Arthrodesis status Acute
[2016-06-17] MEDS: ATORVASTATIN CALCIUM 40 MG TAB PO SCH (17:03)
[2016-06-18] MEDS: oxyCODONE IR 5 MG TAB PO PRN ×3 (02:46→20:23)
[2016-06-18] MEDS: DIAZEPAM 5 MG TAB PO PRN (03:33)
[2016-06-18 04:47] LABS: % IMMATURE GRANULYOCYTES 0.5 % (0.0-1.1); ABSOLUTE IMMATURE GRANULOCYTES 0.07 10^3/uL (0.00-0.10); ADD DIFF? NO; ADD MORPH? NO; ADD SCAN? NO; ATYPICAL LYMPHOCYTE FLAG 0 (0-99); FRAGMENT RBC FLAG 0 (0-99); HEMATOCRIT 30.5 % (40.0-51.0); LEFT SHIFT FLG 0 (0-99); LIPEMIA HEMOLYSIS FLAG 80 (0-99); MEAN CELL HEMOGLOBIN 29.5 pg (27.9-34.1); MEAN CELL HEMOGLOBIN CONCENTR. 32.8 g/dL (32.4-36.7); MEAN PLATELET VOLUME 9.8 fL (8.7-11.7); PLATELET CLUMPS FLAG 0 (0-99); PLATELET COUNT 224 10^3/uL (150-400); RED BLOOD CELL COUNT 3.39 10^6/uL (4.40-6.38); RED CELL DISTRIBUTION WIDTH 18.9 % (11.5-15.2)
[2016-06-18 04:58] LABS: ANION GAP 12 mEq/L (8-16); CARBON DIOXIDE 22 mEq/l (22-31); CHLORIDE 106 mEq/L (97-110); CREATININE 1.1 mg/dL (0.7-1.3); GLOMERULAR FILTRATION RATE > 60; GLUCOSE 100 mg/dL (70-100); POTASSIUM 4.2 mEq/L (3.5-5.2); SODIUM 140 mEq/L (134-144)
[2016-06-18] MEDS: CARBIDOPA/LEVODOPA 25 MG/100 MG TAB PO SCH ×4 (06:38→20:21)
[2016-06-18] MEDS: METHOCARBAMOL 750 MG TAB PO PRN ×2 (07:27→18:19)
--- NOTE | 2016-06-18 07:56 | NEUSURGPN ---
Assessment/Plan: A/P 76 yo male that is s/p TLIF L2/3 with tie in fusion to existing hardware - POD#2 -Rigid LSO brace when OOB -TEDs, SCDs, lovenox POD#3 -Pain management - continue current meds -Post op xrays show stable hardware -Continue PT/OT -DARON drain out -Dispo - to rehab once placement obtained. Pt [facility]. -Call NS with any issues Subjective: Pt resting in bed, states walking is painful but he is moving well. Objective: AAOx3 NAD VSS MAEx4 Motor 5/5 BLE Incision dressed Brace on Urinary Catheter in Place: No Catheter Insertion Date: 06/16/16 Neurosurgery Physical Exam - Vitals, I&O, Labs I and O 06/17/16 06/18/16 06/19/16 05:59 05:59 05:59 Intake Total 3230 1050 Output Total 1585 1230 Balance 1645 -180 Intake: Oral (ml) 880 1050 IV Intake (ml) 2350 Output: Urine (ml) 1210 1150 Catheter 1210 Toilet 500 Urinal 650 Estimated Blood Loss (ml) 150 Wound Drainage (ml) 225 80 #1 Posterior Back Jian 225 80 Morel Other: Number of Voids Toilet 2 Vital Signs Temp Pulse Resp BP Pulse Ox 36.6 C 79 16 97/42 L 92 06/18/16 07:53 06/18/16 07:53 06/18/16 07:53 06/18/16 07:53 06/18/16 07:53 Laboratory Results 06/18/16 04:13 06/18/16 04:13 ICD10 Worksheet Patient Problems: Problems Problem Status Onset Arthrodesis status Acute Lumbar stenosis Acute Low back pain Acute Lumbosacral stenosis Acute
[2016-06-18] MEDS: FAMOTIDINE 20 MG TAB PO SCH ×2 (10:11→20:21)
[2016-06-18] MEDS: SENNOSIDES/DOCUSATE SODIUM TAB PO SCH ×2 (10:12→20:21)
[2016-06-18] MEDS: TAMSULOSIN HCL 0.4 MG CAP PO SCH (10:12)
[2016-06-18] MEDS: HYDROCHLOROTHIAZIDE 25 MG TAB PO SCH (10:14)
[2016-06-18] MEDS: morphINE SR 15 MG TAB PO SCH ×2 (10:16→20:21)
--- NOTE | 2016-06-18 10:24 | HOSPPROG ---
Hospitalist Progress Note Assessment/Plan: 76 yo M with hx of severe lumbar stenosis admitted with slurred speech and now s /p TLIF * slurred speech * seems to be have largely resolved, likely medication related versus related to exacerbation of parkinson's symptoms, this morning again with a bit of slurred speech that resolved as he was more awake. Brain MRI w/o e/o CVA * severe lumbar radiculopathy * s/p TLIF L2/3 on 06/16; plan for rigid LSO brace when oob, doing well post op , may need to dc to snf, working with pt/ot * anemia: monitoring in post op state, no e/o active bleeding * history of peripheral vascular disease and AAA * have been holding asa given recent surgery, will need to d/w nsg when to restart * hypertension * normal to low normal on hctz * Parkinson's--continue home meds * BPH--no current issues with voiding * dispo: will likely be ready to dc to snf in coming 1-2 days Subjective: no significant overnight events, patient feeling well just sleepy this am Objective: Vital Signs Temp Pulse Resp BP Pulse Ox 36.6 C 79 16 97/42 L 92 06/18/16 07:53 06/18/16 07:53 06/18/16 07:53 06/18/16 07:53 06/18/16 07:53 Laboratory Results 06/18/16 04:13 06/18/16 04:13 06/17/16 06/18/16 06/19/16 05:59 05:59 05:59 Intake Total 3230 1050 Output Total 1585 1230 Balance 1645 -180 PT 13.4 SEC (12.0-15.0) 06/12/16 16:20 INR 1.03 (0.83-1.16) 06/12/16 16:20 awake alert nad anicteric op clear rrr no mrg cta b soft nt nd no cce warm dry well perfused oriented appropriate speech a bit slurred ICD10 Worksheet Patient Problems: Problems Problem Status Onset Lumbosacral stenosis Acute Low back pain Acute Lumbar stenosis Acute Arthrodesis status Acute
[2016-06-18] MEDS: POLYETHYLENE GLYCOL 3350 17 GM PKT PO PRN (12:21)
[2016-06-18] MEDS: ACETAMINOPHEN 325 MG TAB PO PRN (16:59)
[2016-06-18] MEDS: ATORVASTATIN CALCIUM 40 MG TAB PO SCH (16:59)
[2016-06-18] MEDS: NS 1,000 ML IV SCH (17:03)
[2016-06-19] MEDS: METHOCARBAMOL 750 MG TAB PO PRN ×3 (01:16→20:38)
[2016-06-19] MEDS: ACETAMINOPHEN 325 MG TAB PO PRN (01:16)
[2016-06-19 04:44] LABS: % IMMATURE GRANULYOCYTES 0.3 % (0.0-1.1); ABSOLUTE IMMATURE GRANULOCYTES 0.03 10^3/uL (0.00-0.10); ADD DIFF? NO; ADD MORPH? NO; ADD SCAN? NO; ATYPICAL LYMPHOCYTE FLAG 0 (0-99); FRAGMENT RBC FLAG 60 (0-99); HEMATOCRIT 26.1 % (40.0-51.0); HEMOGLOBIN 8.4 g/dL (13.7-17.5); LEFT SHIFT FLG 0 (0-99); LIPEMIA HEMOLYSIS FLAG 80 (0-99); MEAN CELL HEMOGLOBIN 29.2 pg (27.9-34.1); MEAN CELL HEMOGLOBIN CONCENTR. 32.2 g/dL (32.4-36.7); MEAN CELL VOLUME 90.6 fL (81.5-99.8); MEAN PLATELET VOLUME 9.8 fL (8.7-11.7); PLATELET CLUMPS FLAG 0 (0-99); PLATELET COUNT 193 10^3/uL (150-400); RED BLOOD CELL COUNT 2.88 10^6/uL (4.40-6.38); RED CELL DISTRIBUTION WIDTH 18.5 % (11.5-15.2)
[2016-06-19 05:01] LABS: ANION GAP 5 mEq/L (8-16); CALCIUM 8.1 mg/dL (8.5-10.4); CARBON DIOXIDE 25 mEq/l (22-31); CHLORIDE 108 mEq/L (97-110); GLOMERULAR FILTRATION RATE > 60; GLUCOSE 83 mg/dL (70-100); SODIUM 138 mEq/L (134-144)
[2016-06-19] MEDS: NS 1,000 ML IV SCH (05:05)
[2016-06-19] MEDS: CARBIDOPA/LEVODOPA 25 MG/100 MG TAB PO SCH ×4 (05:05→20:38)
--- NOTE | 2016-06-19 07:17 | NEUSURGPN ---
Date of Surgery: 06/16/16 Post Op Day: 3 Assessment/Plan: Assessment: 76 yo male that is s/p TLIF L2/3 with tie in fusion to existing hardware - POD#3 Plan: -LSO brace when OOB-fitting well-no skin issues -TEDs, SCDs, on lovenox POD#3 -Pain management - continue current meds -Post op xrays show stable hardware-no complications noted -pt with ileus on xrays-IM working with pt on this -Continue PT/OT-CPM -DARON drain out/CDI -Dispo - to rehab once placement obtained. Pt request [facility] [place] [facility] -Call NS with any issues Subjective: Awake and alert. NAD. No new complaints or concerns Objective: AAOx3 NAD VSS MAEx4 Motor 5/5 BLE Incision dressed Brace on Neuro Check Frequency: per routine Urinary Catheter in Place: No Catheter Insertion Date: 06/16/16 - Physician Discussed Patient with : Kwasi Patient Seen by : Kwasi Neurosurgery Physical Exam - Vitals, I&O, Labs I and O 06/18/16 06/19/16 06/20/16 05:59 05:59 05:59 Intake Total 1050 1800 Output Total 1230 570 Balance -180 1230 Intake: Oral (ml) 1050 700 IV Infused (ml) 1100 Ns 1,000 ml @ 100 mls/hr 1100 IV CONT SHY Rx#: [id number] Output: Urine (ml) 1150 320 Toilet 500 320 Urinal 650 Emesis (ml) 250 Wound Drainage (ml) 80 #1 Posterior Back Jian 80 Morel Other: Number of Voids Toilet 2 1 Number of Emesis 1 Occurrences Vital Signs Temp Pulse Resp BP Pulse Ox 36.5 C 79 19 114/56 L 94 06/19/16 04:00 06/19/16 04:00 06/19/16 04:00 06/19/16 04:00 06/19/16 04:00 Laboratory Results 06/19/16 04:15 06/19/16 04:15 ICD10 Worksheet Patient Problems: Problems Problem Status Onset Arthrodesis status Acute Lumbar stenosis Acute Low back pain Acute Lumbosacral stenosis Acute - ICD10 Problem Qualifiers (1) Arthrodesis status
[2016-06-19] MEDS: SENNOSIDES/DOCUSATE SODIUM TAB PO SCH ×2 (09:43→20:38)
[2016-06-19] MEDS: ENOXAPARIN 40 MG/0.4 ML SYR SC SCH (09:44)
[2016-06-19] MEDS: TAMSULOSIN HCL 0.4 MG CAP PO SCH (09:44)
[2016-06-19] MEDS: HYDROCHLOROTHIAZIDE 25 MG TAB PO SCH (09:44)
[2016-06-19] MEDS: FAMOTIDINE 20 MG TAB PO SCH ×2 (09:44→20:38)
[2016-06-19] MEDS: oxyCODONE IR 5 MG TAB PO PRN ×3 (09:50→20:41)
[2016-06-19] MEDS: morphINE SR 15 MG TAB PO SCH ×2 (09:58→20:47)
[2016-06-19] MEDS: ATORVASTATIN CALCIUM 40 MG TAB PO SCH (15:57)
[2016-06-19] MEDS: HYDROmorphONE/DILAUDID 1 MG/ML SYR IVP PRN (15:57)
--- NOTE | 2016-06-19 16:24 | HOSPPROG ---
Hospitalist Progress Note Assessment/Plan: 76 yo M with hx of severe lumbar stenosis admitted with slurred speech and now s /p TLIF * slurred speech * seems to be have largely resolved, likely medication related versus related to exacerbation of parkinson's symptoms, occurs intermittently when somnolent. Brain MRI w/o e/o CVA, non focal neuro exam. * post op ileus: * with some n/v initially that has now resolved, mild and in the setting of recent surgery as well as narcotics and minimal mobility. Will minimize narcs as we are able, ambulate. tolerating diet so will not change at this point. * severe lumbar radiculopathy * s/p TLIF L2/3 on 06/16; plan for rigid LSO brace when oob, doing well post op , may need to dc to snf, working with pt/ot * anemia: monitoring in post op state, no e/o active bleeding, likely epected post op drop * history of peripheral vascular disease and AAA * have been holding asa given recent surgery, will need to d/w nsg when to restart * hypertension * normal to low normal on hctz * Parkinson's--continue home meds * BPH--no current issues with voiding * dispo: will likely be ready to dc to snf in coming 1-2 days Subjective: no significant overnight events, patient is feeling better today, ambulating, eating well Objective: Vital Signs Temp Pulse Resp BP Pulse Ox 36.6 C 81 14 120/70 94 06/19/16 15:50 06/19/16 15:50 06/19/16 15:50 06/19/16 15:50 06/19/16 15:50 Laboratory Results 06/19/16 04:15 06/19/16 04:15 06/18/16 06/19/16 06/20/16 05:59 05:59 05:59 Intake Total 1050 1800 400 Output Total 1230 570 Balance -180 1230 400 PT 13.4 SEC (12.0-15.0) 06/12/16 16:20 INR 1.03 (0.83-1.16) 06/12/16 16:20 awake alert nad anicteric op clear rrr no mrg cta b soft nt nd no cce warm dry well perfused oriented appropriate speech a bit slurred ICD10 Worksheet Patient Problems: Problems Problem Status Onset Arthrodesis status Acute Lumbar stenosis Acute Low back pain Acute Lumbosacral stenosis Acute
[2016-06-19] MEDS: DIAZEPAM 5 MG TAB PO PRN (21:49)
[2016-06-20 04:02] VITALS: PULSE 79
[2016-06-20] MEDS: METHOCARBAMOL 750 MG TAB PO PRN (05:18)
[2016-06-20] MEDS: CARBIDOPA/LEVODOPA 25 MG/100 MG TAB PO SCH ×2 (05:18→11:07)
[2016-06-20 06:12] LABS: % IMMATURE GRANULYOCYTES 0.4 % (0.0-1.1); ABSOLUTE IMMATURE GRANULOCYTES 0.04 10^3/uL (0.00-0.10); ADD DIFF? NO; ADD MORPH? NO; ADD SCAN? NO; ATYPICAL LYMPHOCYTE FLAG 0 (0-99); FRAGMENT RBC FLAG 0 (0-99); LEFT SHIFT FLG 0 (0-99); LIPEMIA HEMOLYSIS FLAG 80 (0-99); MEAN CELL HEMOGLOBIN CONCENTR. 32.1 g/dL (32.4-36.7); MEAN CELL VOLUME 90.3 fL (81.5-99.8); MEAN PLATELET VOLUME 10.4 fL (8.7-11.7); PLATELET CLUMPS FLAG 0 (0-99); PLATELET COUNT 213 10^3/uL (150-400)
--- NOTE | 2016-06-20 07:59 | NEUSURGPN ---
Date of Surgery: 06/16/16 Post Op Day: 4 Assessment/Plan: Assessment: 76 yo male that is s/p TLIF L2/3 with tie in fusion to existing hardware - POD#4 Plan: -LSO brace when OOB-fitting well-no skin issues -TEDs, SCDs, on lovenox POD#3 -Pain management - continue current meds -Post op xrays show stable hardware-no complications noted -pt with ileus on xrays-IM working with pt on this-pt had BM yesterday-better today -Continue PT/OT-CPM -DARON drain out/CDI -Dispo - to rehab once placement obtained. Pt request [facility] -Call NS with any issues Subjective: Awake and alert. NAD. Eating/drinking and voiding. No f/c/n/v/d. Objective: AAOx3 NAD VSS MAEx4 Motor 5/5 BLE Incision dressed Brace on Neuro Check Frequency: per routine Urinary Catheter in Place: No Catheter Insertion Date: 06/16/16 - Physician Discussed Patient with : Kwasi Patient Seen by : Kwasi Neurosurgery Physical Exam - Vitals, I&O, Labs I and O 06/19/16 06/20/16 06/21/16 05:59 05:59 05:59 Intake Total 1800 400 Output Total 570 600 Balance 1230 -200 Intake: Oral (ml) 700 400 IV Infused (ml) 1100 Ns 1,000 ml @ 100 mls/hr 1100 IV CONT SHY Rx#: [id number] Output: Urine (ml) 320 600 Toilet 320 600 Emesis (ml) 250 Other: Number of Voids Toilet 1 3 Number of Stools Toilet 1 Number of Emesis 1 Occurrences Vital Signs Temp Pulse Resp BP Pulse Ox 36.6 C 79 16 132/63 H 97 06/20/16 04:00 06/20/16 04:00 06/20/16 04:00 06/20/16 04:00 06/20/16 04:00 Laboratory Results 06/20/16 04:33 06/19/16 04:15 ICD10 Worksheet Patient Problems: Problems Problem Status Onset Arthrodesis status Acute Lumbar stenosis Acute Low back pain Acute Lumbosacral stenosis Acute - ICD10 Problem Qualifiers (1) Arthrodesis status
[2016-06-20 08:00] VITALS: BP 141/67; RESP 15; TEMP 97.7; O2SAT 93
--- NOTE | 2016-06-20 08:22 | PDIAF ---
- Diagnosis Diagnosis: s/p TLIF L2/3 Code Status: Full Code - Medication Management Discharge Medications: Medications to Continue on Transfer Cholecalciferol Vit D3 [Vitamin D3 (*)] 1,000 units PO DAILY 09/17/14 [Last Taken 06/12/16 07:00] Tamsulosin HCl [Flomax 0.4 MG (*)] 0.4 mg PO DAILY #30 cap 10/14/14 [Last Taken 06/12/16 07:00] Carbidopa/Levodopa 25/100Mg [Sinemet 25/100 MG (*)] 1.5 tab PO TID@,12,18 12/25 [Last Taken 06/12/16 07:00] Carbidopa/Levodopa 25/100Mg [Sinemet 25/100 MG (*)] 2 tab PO HS 12/20/15 [Last Taken 06/11/16 21:00] traMADol [Ultram 50 mg (*)] 50 mg PO Q6 PRN 12/20/15 [Last Taken Unknown] Atorvastatin Calcium [Lipitor 40 mg (*)] 40 mg PO DAILY@16 06/12/16 [Last Taken 06/11/16 16:00] Gabapentin [Neurontin 100 MG (*)] 100 - 200 mg PO HS 06/12/16 [Last Taken 21:00] Hydrochlorothiazide [HCTZ (*)] 25 mg PO DAILY 06/12/16 [Last Taken 06/12/16 07: 00] Acetaminophen [Tylenol 325mg (*)] 650 mg PO Q4HRS PRN #0 tab 06/20/16 [Last Taken Unknown] Diazepam [Valium 5 MG (*)] 5 mg PO QID PRN #30 tab 06/20/16 [Last Taken Unknown] Enoxaparin [Lovenox 40 MG (*)] 40 mg SC DAILY #7 syr 06/20/16 [Last Taken Unknown] Famotidine [Pepcid 20 MG (*)] 20 mg PO BID #30 tab 06/20/16 [Last Taken Unknown] Methocarbamol [Robaxin 750 mg (*)] 750 mg PO TID PRN #60 tab 06/20/16 [Last Taken Unknown] Ondansetron Odt [Zofran Odt 4 mg (*)] 4 mg PO Q4HRS PRN #20 tab 06/20/16 [Last Taken Unknown] Sennosides/Docusate Sodium [Senokot-S] 1 - 2 tab PO BID #30 tab 06/20/16 [Last Taken Unknown] morphINE SR [Ms Contin/Oramorph 15 mg (*)] 15 mg PO BID #14 tab 06/20/16 [Last Taken Unknown] oxyCODONE IR [Oxycodone Ir (*)] 5 mg PO Q3HRS PRN #90 tab 06/20/16 [Last Taken Unknown] Floor Broker Antibiotics: none Discharge Medications: Refer to the Discharge Home Medication list for PRN reason. PICC Care - Routine: N/A - Orders Services needed: Registered Nurse, Master Arabic Translator, Physical Therapy, Occupational Therapy Oxygen: to keep O2 sat greater than 90% Diet Recommendation: no restrictions on diet Diet Texture: Regular Texture Diet, Thin Liquids, Meds Whole w/Liquids [place]: Not applicable Wound Care Instructions: wound check in 2-3 weeks - Follow Up Care Current Providers and Referrals: GONZÁLEZ GARCIA [Other] - As per Instructions Karissa Villalpando MD [Medical Doctor] - (follow up in 2-3 weeks for a recheck and eval)
[2016-06-20] MEDS: ENOXAPARIN 40 MG/0.4 ML SYR SC SCH (08:39)
[2016-06-20] MEDS: HYDROCHLOROTHIAZIDE 25 MG TAB PO SCH (08:39)
[2016-06-20] MEDS: morphINE SR 15 MG TAB PO SCH (08:39)
[2016-06-20] MEDS: FAMOTIDINE 20 MG TAB PO SCH (08:39)
[2016-06-20] MEDS: TAMSULOSIN HCL 0.4 MG CAP PO SCH (08:39)
[2016-06-20] MEDS: oxyCODONE IR 5 MG TAB PO PRN (10:06)
[2016-06-20] MEDS: SENNOSIDES/DOCUSATE SODIUM TAB PO SCH (10:10)
--- NOTE | 2016-06-20 15:58 | HOSPPROG ---
Hospitalist Progress Note Assessment/Plan: 76 yo M with hx of severe lumbar stenosis admitted with slurred speech and now s /p TLIF * slurred speech * seems to be have largely resolved, likely medication related versus related to exacerbation of parkinson's symptoms, occurs intermittently when somnolent. Brain MRI w/o e/o CVA, non focal neuro exam. * post op ileus: * with some n/v initially that has now resolved, tolerating diet * severe lumbar radiculopathy * s/p TLIF L2/3 on 06/16; plan for rigid LSO brace when oob, doing well post op , may need to dc to snf, working with pt/ot * anemia: monitoring in post op state, no e/o active bleeding, likely epected post op drop * history of peripheral vascular disease and AAA * have been holding asa given recent surgery, will need to d/w nsg when to restart * hypertension * normal to low normal on hctz * Parkinson's--continue home meds * BPH--no current issues with voiding * dispo: dc to snf today Subjective: no signficant overnight events, patient feels ready to go to snf Objective: Vital Signs Temp Pulse Resp BP Pulse Ox 36.5 C 79 15 141/67 H 93 06/20/16 07:59 06/20/16 07:59 06/20/16 07:59 06/20/16 07:59 06/20/16 07:59 Laboratory Results 06/20/16 04:33 06/19/16 04:15 06/19/16 06/20/16 06/21/16 05:59 05:59 05:59 Intake Total 1800 400 Output Total 570 600 Balance 1230 -200 PT 13.4 SEC (12.0-15.0) 06/12/16 16:20 INR 1.03 (0.83-1.16) 06/12/16 16:20 awake alert nad anicteric op clear rrr no mrg cta b soft nt nd no cce warm dry well perfused oriented appropriate speech a bit slurred ICD10 Worksheet Patient Problems: Problems Problem Status Onset Arthrodesis status Acute Low back pain Acute Lumbar stenosis Acute Lumbosacral stenosis Acute
== END 2016-06-20 11:36 | DRG 460 ==
LOC: EDSTATUS 16:03 → F3N 19:45
PROVIDERS: ADMIT Hospitalist; ATTEND Hospitalist
DX: M48.06 Spinal stenosis, lumbar region (principal); M54.16 Radiculopathy, lumbar region; K56.7 Ileus, unspecified; G20 Parkinson's disease; R47.81 Slurred speech; T40.695A Adverse effect of other narcotics, initial encounter; I10 Essential (primary) hypertension; E78.5 Hyperlipidemia, unspecified; N40.0 Benign prostatic hyperplasia without lower urinary tract symptoms; I73.9 Peripheral vascular disease, unspecified; Z98.1 Arthrodesis status; Z87.891 Personal history of nicotine dependence
CPT/HCPCS: 92523-GN; 92610-GN; 97116-GP; 97161-GP; 97164-GP; 97165-GO; 97530-GO; 97530-GP; 97535-GO; C1713; G0480; G8978-GP-CJ; G8979-GP-CI; G8987-GO-CJ; G8988-GO-CI; G8989-GO-CJ; G8996-GN-CH; G8997-GN-CH; G8998-GN-CH; G8999-GN-CJ; G9186-GN-CI; J0690; J1100; J1170; J1650; J2001; J2250; J2370; J2704; J3010

== ENCOUNTER → 2018-08-15 | Outpatient (CLI) | payer OTHER, BC | LOC: FLAB 11:48 ==